=== PATIENT | male | born 1960 | race Caucasian/White ===

== ENCOUNTER 2016-05-10 21:24 | Inpatient (IN) | payer MEDICARE ==
[~2016-05-10] VITALS: Ht 177.8 cm; Wt 77.2 kg
[~2016-05-10 21:24] MED LIST: ASPI325T32 PO; CARV3.122 PO; CLIN-78 PO
[2016-05-10 23:39] VITALS: BP 180/128; PULSE 98; RESP 22; O2SAT 98
[2016-05-11] VITALS (11 sets, daily range): BP systolic 125–157; BP diastolic 90–114; PULSE 64–98; RESP 16–24; O2SAT 87–99
[2016-05-11] MEDS ORDERED: Nitroglycerin 2% 1 Gm Ointment TOPICAL ONE (00:15)
[2016-05-11] MEDS ORDERED: Ondansetron 2 mg/mL 2 mL Inj IVPUSH PRN (00:20)
[2016-05-11] MEDS ORDERED: Alum-Mag Hydrox-Simeth 30 mL Suspension PO PRN (00:20)
[2016-05-11] MEDS ORDERED: Polyethylene Glycol (PEG) 17 Gm Powder PO PRN (00:20)
[2016-05-11] MEDS ORDERED: Senna-Docusate 8.6-50 mg Tablet PO PRN (00:20)
[2016-05-11] MEDS ORDERED: Heparin 5,000 Unit/mL Inj SUBQ SCH (00:30)
[2016-05-11] MEDS: Sodium Chloride LOK Flush 10 mL Syringe IVFLUSH SCH ×4 (00:37→20:03)
--- NOTE | 2016-05-11 00:47 | PCM.HPMED ---
Subjective Date of Service May 11, 2016 Primary Provider: Admitting Physician: Alexis Alvarez MD Primary Care Physician: Nabil Mills MD Attending Physician: Alexis Alvarez MD Admit Status: Direct Admit, [facility] Telemetry Chief Complaint: SOB and increased leg swelling History of Present Illness: Mr. Frank Fraser is a 55 yo male with history of mental illness, polysubstance abuse, hepatic encephalopathy, hepatitis C, CHF of unknown type, HTN, and chronic renal insufficiency who was admitted directly from [facility] ED for increasing SOB. Patient reports worsening SOB, productive cough , and leg swelling 3 days ago. He reports brown sputum occasionally. He complains about mouth and gum pain and cannot talk clearly. However, he denies any CP, nausea, vomiting, headache, or abdominal pain currently. He states to be hungry and thirsty, requesting to eat. History is extremely limited due to his somnolent state and incoherent speech. According to the ED note from the transfer hospital, patient presented to the ED with complaint of worsening dyspnea with walking and exertion. Sitting upright seems to help. In the ED at [place], patient was found to be hypertensive 176/143. Temp 97.7. HR 100, RR 20, and O2 97% at [facility]. Labs significant for positive Amphetamine/ Methamphetamin on the UDS, INR 1.5, DDimer > 20, BUN 77, Cr 2.9, Na 134, K 5.6, AST 612, ALT 953, Alk Phos 529. Trop 0.41, CK-MB 56.9, CPK 924. BNP >5000. UA negative. CXR showed CHF and pulmonary edema with no infiltrate. EKG revealed normal sinus rhythm at rate of 99. It was thought the patient would get higher level of care, possible cardiology and nephrology, and he was transferred to [facility]. Of note, patient was admitted to the hospital for similar symptoms in 02/29/2016. Review of Systems: Due to the patient's incoherent speech and altered mental status, unable to perform complete review of systems. See HPI for pertinent positives and negatives. Allergies Coded Allergies: Sulfa (Sulfonamide Antibiotics) (Unverified Allergy, Severe, 02/28/15) As per RN-RN Report (Tristian Novoa RN) [facility] Home Medications Patient reports to take Lasix and BP medications. Unknown medication list. PMH CHF Renal Insufficiency Polysubstance abuse Abnormal live function test Hepatic encephalopathy Hepatitis C Gout PE FL HTN Psychotic disorder Mental Illness Adjustment disorder Surgical History Hernia repair Family History Unknown Social History Hx Substance Use: Yes (Meth) Smoking Status: Unknown if Ever Smoker Additional Information Limited social history due to patient's mental status. He denies drug or alcohol use. Per record, he is a current every day heavy tobacco smoker and methamphetamines. Unknown alcohol use. Patient states he lives with "izabella baker. " Likely to be homeless. Exam Vital Signs Vital Sign - Last Date Time Temp Pulse Resp B/P Pulse Ox O2 Delivery O2 Flow Rate FiO2 05/11/16 00:05 91 05/10/16 23:39 36.5 22 180/128 98 Room Air Exam General: Thin, sloven, disheveled, poor hygiene, appears somnolent but easily arousable with verbal. Incoherent speech. No acute distress, well-developed, well-nourished, appropriately interactive HEENT: Normocephalic, atraumatic. External ears without defect. Pupils equal, round, and sluggish reaction to light and accommodation. Slight scleral icterus , moist conjunctivae, and no lid lag. Rhinophyma. Very poor dentition with several tooth decay and missing teeth. No oral thrush visualize. Dry mucosa. Neck: Supple with full range of motion. Marked jugular venous distension. No lymphadenopathy or thyromegaly. Cardiovascular: Regular rate and rhythm with no murmurs, rubs, or gallops appreciated Pulmonary: Scattered rales, worse at bilateral bases. No wheezes or rhonchi. Normal respiratory effort with no use of accessory muscles. Abdomen: Bowel tones present. Soft, nontender, nondistended. No hepatosplenomegaly or masses appreciated. Extremities: Moderate pitting edema from below the knees down to the feet. No clubbing or cyanosis noted. Skin: Slight jaundice. Mild erythematous papular rash on bilateral legs. Dirty feet and nails. Neurological: Unable to assess due to patient's mental status. Not follow commands. Sensory function within normal limits. Psychiatric: Normal mood and affect. Somnolent and only oriented self and year. Lab and Diagnostics X-Rays, CTs and MRIs CXR at [facility] showed CHF, pulmonary edema, vascular gongestion, cardiomegaly. No infiltrate. 12-lead ECG EKG at the [facility] showed normal sinus rhythm at rate of 99. No ST changes. QTc 464. Unchanged compared to previous EKG on 03/16/16. Assessment & Plan 55 yo male with history of mental illness, polysubstance abuse, hepatic encephalopathy, hepatitis C, CHF of unknown type, HTN, and chronic renal insufficiency who was admitted directly from [facility] ED for increasing SOB. 1. Acute on chronic CHF exacerbation, present on admission, active. - Unknown if systolic or diastolic dysfunction. No prior Echo. - Patient presents with increasing dyspnea, fatigue, cough, and edema. Exam reveals warm and wet. - Markedly elevated Pro-BNP >5000 and cardiomegaly with pulmonary edema on CXR. - Multiple precipitants: medical noncompliance, renal failure, hypertensive crisis, and drugs use (Meth). - He was given a dose of Lasix 40mg in the ED at [place]. Will continue with Lasix 40mg IV BID. - Monitor I/O closely as well as daily weight. - Check Echo in the morning. - O2 supplement as needed. Keep O2>90%. - Will start Metoprolol tartrate 50mg BID in the morning. Will hold off on starting ACEi/ARBs given renal damage. 2. Elevated D-dimer with high suspicion for PE, present on admission, active. - D-Dimer >20 at [facility]. Patient had h/o PE in the past. - CT angio chest ordered, but due to his elevated Cr, it was cancelled. Consider ordering a V/Q scan this morning. - Will start Heparin bolus and drip. - Monitor PTT 3. Possible acute encephalopathy, present on admission, active. - Unknown baseline mental status, but is concerned for hepatic encephalopathy. - Check Ammonia and will start Lactulose if elevated. - Other possible etiologies include Meth use, chronic hypertension, B12/folate deficiency, or Wernicke. - Will start thiamine and multivitamins. - Check B12 and folate. - No signs of infection: afebrile, normal WBC, normal UA, normal CXR. However possible source of infection could be odontogenic infection given poor dentition. - Check Procalcitonin and Lactic acid. - Continue to monitor signs and symptoms. Consider ordering blood culture and start antibiotics if clinically indicated. - Swallow screen by nursing. If pass, will start with pureed diet. NPO if fails until clear by speech. 4. Acute on chronic kidney disease, present on admission, active. - BUN 77 and Cr 2.9 on admission (baseline Cr 1.96). - Avoid nephrotoxic drugs. Hold off on Lisinopril for now. - Will continue to monitor renal function. 5. Hypertensive emergency, present on admission, active. - BP 180/128 on admission with possible acute encephalopathy and kidney injury. - Likely due to medical noncompliance. - Patient received Nitro paste and Metoprolol IV push in the ED. Another Nitro paste here. - BP improved on the Nitro paste. Goal MAP is around 108. - Will start Metoprolol PO in the morning. Consider adding Lisinopril if renal function improves. 6. Elevated Troponin and CK-MB, present on admission, active. - In the setting of DEVANTE. However, Trop is elevated compared to baseline (0.41 today,was 0.018 two months ago) - EKG on admission was negative for acute changes. - Patient is otherwise asymptomatic. - Trend Trop and monitor Telemetry. 7. Electrolyte abnormalities, present on admission, acute. - Hypervolemic hyponatremia: in the setting of CHF exacerbation, will not give IVF and continue to monitor. - Hyperkalemia: no EKG changes. Continue to monitor 8. Elevated liver enzymes, acute on chronic, present on admission, active. - LFTs all elevated compared to 2 months ago. Suspect liver cirrhosis. - Will check acute hepatitis panel given history of hepatitis C. - Check abdominal U/S to look for cirrhosis. - INR elevated at 1.5. Will monitor INR and consider adding Vitamin K. 9. Dental/mouth pain, chronic, active. - Likely due to odontogenic infection. - Consider starting antibiotics and follow up with dentist as out patient. - Magic mouth wash PRN. 10. Methamphetamine abuse, chronic, active. - patient advised to quit. 11. Social issues including homelessness - consult social work faculty member in the morning. Code status: FULL per the patient. Patient is admitted under inpatient status with expected length of stay greater than 2 midnights due to severity of presenting symptoms, risk of adverse event, and complexity of treatment plan. Pain Evaluation: Adequate Pain Control GI Prophylaxis: H2 sushil VTE Prophylaxis: Other (Heparin ggt) Resuscitation Status: CPR: Attempt Resuscitation Attending Statement The patient was seen and examined together with Dr. Wilkinson on 05/10 and I agree with the history, exam and plan as outlined in the note above. Sury Wilkinson DO May 11, 2016 00:47 Alexis Alvarez MD May 11, 2016 02:19
--- NOTE | 2016-05-11 00:48 | NUR ---
Admission Pt brought by EMT from [facility] via stretcher. Pt alert and orientated. Mumbled, slurred speech at time makes understanding difficult. Pt able to transfer self from stretcher to bed. Admission completed to best ability as pt is drowsy and must be woken every few minutes to ask questions. Pt given ice chips and will have nurse swallow evaluation.
[2016-05-11] MEDS ORDERED: Heparin 5,000 Unit/mL Inj IVPUSH PRN (00:55)
[2016-05-11] MEDS: Heparin 25K Unit/500mL 0.45 NS 25,000 UNIT in IV Premix 1 EACH IV SCH ×2 (02:16→21:35)
[2016-05-11] MEDS ORDERED: Labetalol 5 mg/mL 4 mL Inj IVPUSH ONE (05:25)
[2016-05-11] MEDS: Diphen-Lido-Mylanta 1:1:1 Susp 15 mL Syringe PO PRN (05:31)
[2016-05-11] MEDS ORDERED: MeTOProlol 1 mg/mL 5 mL Inj IV ONE (05:35)
--- NOTE | 2016-05-11 06:15 | ABG ---
DateTimeAnalyzed 06:12:00 -_ pH ____7.384 - 7.350 7.450 pCO2 ___33.5__ -mmHg 35.0 45.0 pO2 ___94.0__ -mmHg 69.0 116 HCO3- ___19.6__ -mmol/L 22.0 26.0 ABE ___-4.3__ -mmol/L -2.0 2.0 tHb ___10.8__ -g/dL O2Hb ___94.4__ -% COHb ____1.4__ -% MetHb ____0.9__ -% sO2 ___96.6__ -% 25.0 FIO2 ___21.0__ -% Drawn By MM - Date/Time Notified____ 06:15:00 -_ Liter_Flow ____2.0__ -L/min Oxygen Device 1 __CANNULA - Notified Whom DR GONZALEZ - B 754 -mmHg tO2 ___14.4__ -Vol% Aaron test _Positive -
[2016-05-11 08:28] LABS: BASOPHILS % (AUTO) 0.1 % (0-3); EOSINOPHILS % (AUTO) 0.1 % (0-5); MONOCYTES % (AUTO) 10.1 % (4-12); Mean Corpuscular Hemoglobin 24.8 pg (27.0-35.0); Mean Corpuscular Volume 76.5 fL (81-100); NEUTROPHILS % (AUTO) 80.7 % (40-74); Platelet Count 353 bil/L (150-400)
[2016-05-11] MEDS: Multivit-Miner-Folic Acid-Iron Tablet PO SCH (08:34)
[2016-05-11 09:18] LABS: TROPONIN T 0.114 ug/L (0.0-0.011)
[2016-05-11 09:30] LABS: INR 1.5 ratio
--- NOTE | 2016-05-11 11:12 | NUR ---
Limited valuation was completed. Please go to "Notes" then click on "Assessments and Notes" (bottom left corner of screen). Then select appropriate discipline tab on top of screen.
--- NOTE | 2016-05-11 12:06 | DRSVH ---
[facility] [address] [place] [place] [address] Echocardiogram Report Name: DAVID ORDONEZ RStudy Date : 05/11/2016 Height: 70 in Hospital Exam Location: [facility] Weight: 173 lb Gender: Male BSA: 2.0 m2 : 1960 Age: 55 yrs BP: 152/106 mm Hg Reason For Study: Congestive Heart Failure Ordering Physician: [facility] Performed By: [place] Referring Physician: ROSE MARIE GONZALEZ Interpretation Summary 1. Mildly dilated left ventricle with mild to moderately increased wall thickness and globally reduced systolic function with an estimated EF of 20% 2. At least moderately dilated right ventricle with moderately decreased systolic function. 3. Severe tricuspid regurgitation into a dilated right atrium. The estimated right atrial pressure is elevated. The estimated RVSP is 52 mm Hg 4. Moderate mitral regurgitation into a dilated left atrium There is no old study for comparison Procedure: A two-dimensional transthoracic echocardiogram with color flow and Doppler was performed. The study quality was technically good. There is no prior echocardiogram noted for this patient. The patient was in normal sinus rhythm during the exam. Left Ventricle: The left ventricle is mildly dilated. There is mild- moderate concentric left ventricular hypertrophy. Left ventricular ejection fraction is estimated to be 20%. There is severe global hypokinesis of the left ventricle. Flattened septum is consistent with RV pressure/volume overload. Paradoxical septal motion is consistent with right ventricular volume overload. Right Ventricle: The right ventricle is moderately dilated. Right ventricular systolic function is moderately reduced. Atria: The left atrium is severely dilated. The right atrium is severely dilated. No color doppler evidence for an ASD. Mitral Valve: The mitral valve leaflets appear mildly thickened, but open well. There is moderate mitral regurgitation. Aortic Valve: The aortic valve is trileaflet. The aortic valve opens well. No aortic regurgitation is present. Tricuspid Valve: The tricuspid valve leaflets are thickened and/or calcified, but open well. There is severe tricuspid regurgitation. The right ventricular systolic pressure is estimated at 52 mmHg assuming a right atrial pressure of 15 mm Hg. Pulmonic Valve: The pulmonic valve is not well seen, but is grossly normal. There is moderate to severe pulmonic regurgitation. Great Vessels: The aortic root is normal size. The aortic arch is mildly enlarged. The ascending aorta is dilated at 3.9 cm. The pulmonary artery is normal size. The IVC is dilated (diameter is greater than 2.1 cm) and it collapses less than 50% with a sniff. This suggests a high right atrial pressure of 15 mm Hg. Pericardium/ Pleura There is no pericardial effusion. There is no pleural effusion. MMode/2D Measurements & Calculations LVIDd: 6.1 cm RA long axis LVOT diam: 2.5 cm LVIDs: 5.5 cm LA A2 area: 26.6 cm AoV Opening FS: 10.4 % LA A4 area: 23.9 cm RA area EPSS: 1.9 cm LA length (vol) Ao root diam IVSd: 1.4 cm : 33.5 cm LVPWd: 1.3 cm LA vol: 99.9 ml RA vol asc Aorta Diam LA vol index : 146.ml RA Ao Arch Diam (Prox : 74.8 mm2 Trans): 3.5 cm IVC diam: 2.3 cm LV gabriel. diameter/BSA LV sys. diameter/BSA RVD1 (basal) RVD2 (mid): 3.4 cm (cm/m^2): 3.1 (cm/m^2): 2.8 TAPSE: 1.2 cm Doppler Measurements & Calculations Ao V2 max: 74.0 cm/sec MV E max mayco MV E/A: 0.83 TR max mayco Ao max P.2 mmHg : 47.1 cm/sec Med Peak E' Mayco : 307.0 cm/sec Ao mean P.4 mmHg MV A max mayco TR max PG LVOT Max Mayco : 56.8 cm/sec E/E' med: 14.9 : 37.7 mmHg : 54.8 cm/sec Lat Peak E' Mayco PA V2 max : 57.1 cm/sec PLACIDO(I,D): 3.7 cm E/E' lat: 9.1 PA mean PG sev ratio: 0.76 E/e' average : 0.71 mmHg MV dec time: 0.15 sec Ao V2 mean LV V1 max PG PA V2 mean : 57.7 cm/sec : 40.3 cm/sec Ao V2 VTI: 9.1 cm LV V1 VTI: 7.0 cm PA pr(Accel) : 41.6 mmHg PLACIDO(V,D): 3.6 cm2 PLACIDO indexed to BSA (cm^2/m^2): 1.9 Reading Physician:12:05 PM
--- NOTE | 2016-05-11 12:45 | DRSVH ---
PROCEDURE: US ABDOMEN ([id number]) INDICATIONS: Elevated LFTs TECHNIQUE: Real-time scanning was performed of the abdominal and retroperitoneal organs, with image documentatio n. COMPARISON: None. FINDINGS: Liver: The liver is mildly enlarged and measures up to 18.7 cm in length. Diffuse increased echogeni city of the liver is noted when compared to the right kidney, which may partially obscure a subtle de ep or hepatic lesion. No large liver lesion is evident. Gallbladder: The gallbladder is decompressed and subsequently not well evaluated. The patient was no t n.p.o. at the time of this examination. The wall of the gallbladder appears to be thickened and me asures up to 6-7 mm in maximal thickness with a small amount of pericholecystic fluid present. No ob vious cholelithiasis is appreciated. Biliary ducts: The biliary ducts were not definitely seen. Pancreas: Visualized portions of the pancreas are sonographically normal. Spleen: Spleen is mildly enlarged and measures up to 13.4 cm in length. Kidneys: Right kidney is enlarged and measures 16.6 cm in length, related to severe hydronephrosis. Slight increased echogenicity of the renal parenchyma is noted. The left kidney is normal in size an d measures 12.2 cm in length. No significant left-sided hydronephrosis is present. There is slight increased echogenicity of the left renal parenchyma. Aorta: Visualized aorta is normal in caliber at less than 3 cm. Iliacs: Proximal common iliac arteries are normal in caliber at less than 2.5 cm. IVC: Intrahepatic inferior vena cava is patent. Miscellaneous: A small amount of free fluid is seen within the upper abdomen, best appreciated within the right upper quadrant. IMPRESSION: 1. Severe right-sided hydronephrosis is uncertain etiology. CT would be helpful of the abdomen and pelvis to exclude obstructive uropathy. 2. Mild hepatosplenomegaly. Increased echogenicity of the liver may be related to hepatic steatosis . Other chronic liver disease as, such as hepatic cirrhosis cannot be excluded. Please correlate cl inically. 3. Thickened enlarged gallbladder wall may be exaggerated by incomplete distention. However, right heart failure, chronic liver disease, or acute inflammation cannot be excluded. Clinical correlation is recommended. 4. Increased echogenicity of the kidneys suggestive of medical renal disease. 5. Mild ascites. Dictated by: Mookie Garcia M.D. on 05/11/2016 at 11:39 Approved by: Mookie Garcia M.D. on 05/11/2016 at 11:44
[2016-05-11] MEDS: Labetalol 5 mg/mL 4 mL Inj IVPUSH PRN (14:48)
--- NOTE | 2016-05-11 16:03 | DRSVH ---
PROCEDURE: NM VQ PULMONARY VENTILATION IMAGING INDICATIONS: ABNORMAL D-DIMER, SHORTNESS OF BREATH, CHRONIC KIDNEY DISEASE. COMPARISON: None. Radiopharmaceutical: 21.7 mCi DTPA FINDINGS: There is no comparison chest radiograph. Anterior and posterior views of the lung demonstr ate relatively normal ventilation images. The patient refused additional oblique and lateral views. T he patient also refused perfusion scan. IMPRESSION: Nondiagnostic examination. Dictated by: Dustin Mead M.D. on 05/11/2016 at 15:58 Approved by: Dustin Mead M.D. on 05/11/2016 at 16:02
--- NOTE | 2016-05-11 18:03 | PCM.PNMED ---
Subjective Date of Service May 11, 2016 Subjective 55 yo male with history of mental illness, polysubstance abuse, hepatic encephalopathy, hepatitis C, CHF of unknown type, HTN, and chronic renal insufficiency who was admitted directly from [facility] ED for increasing SOB. Patient reports worsening SOB, productive cough, and leg swelling 3 days ago. He remains encephalopathic and somewhat dysarthric so it is difficult to understand his complaints. Does not seem oriented. Exam Vital Signs Vital Sign - Last Date Time Temp Pulse Resp B/P Pulse Ox O2 Delivery O2 Flow Rate FiO2 05/11/16 16:07 35.6 72 22 132/92 99 Room Air 05/11/16 15:01 2.00 Intake and Output 05/10/16 05/10/16 05/11/16 Cumulative From/Thru 15:00 23:00 07:00 05/11/16 00:56 - 05/11/16 06:30 Output Total 200 ml 200 ml Balance -200 ml -200 ml Output Urine Total 200 ml 200 ml Exam General: Disheveled appearing, talkative but nonsensical, no acute distress HEENT: sclerae anicteric, oral mucosa moist, no severe gingival inflammation Neck: Supple no adenopathy Chest: Bibasilar crackles, no dullness Cardiac: S1S2, no murmur Abdomen: BS normal, non-tender Extremities: 2+ edema bilaterally in legs Neuro: A&O, cranial nerves symmetric, motor strength 5/5, no tremor or asterixis IVs and Medications Medications Reviewed: Medications were reviewed in detail Lab and Diagnostics Result Diagram: 05/11/16 0802 05/11/16 0802 X-Rays, CTs and MRIs CXR at [facility] showed CHF, pulmonary edema, vascular gongestion, cardiomegaly. No infiltrate. PROCEDURE: US ABDOMEN ([id number]) IMPRESSION: 1. Severe right-sided hydronephrosis is uncertain etiology. CT would be helpful of the abdomen and pelvis to exclude obstructive uropathy. 2. Mild hepatosplenomegaly. Increased echogenicity of the liver may be related to hepatic steatosis. Other chronic liver disease as, such as hepatic cirrhosis cannot be excluded. Please correlate clinically. 3. Thickened enlarged gallbladder wall may be exaggerated by incomplete distention. However, right heart failure, chronic liver disease, or acute inflammation cannot be excluded. Clinical correlation is recommended. 4. Increased echogenicity of the kidneys suggestive of medical renal disease. 5. Mild ascites. Dictated by: Mookie Garcia M.D. on 05/11/2016 at 11:39 . 12-lead ECG EKG at the [facility] showed normal sinus rhythm at rate of 99. No ST changes. QTc 464. Unchanged compared to previous EKG on 03/16/16. Cardiac Echo Impressions Echocardiogram Report Name: DAVID ORDONEZ Study Date : 05/11/2016 Interpretation Summary 1. Mildly dilated left ventricle with mild to moderately increased wall thickness and globally reduced systolic function with an estimated EF of 20% 2. At least moderately dilated right ventricle with moderately decreased systolic function. 3. Severe tricuspid regurgitation into a dilated right atrium. The estimated right atrial pressure is elevated. The estimated RVSP is 52 mm Hg 4. Moderate mitral regurgitation into a dilated left atrium Assessment & Plan 55 yo male with history of mental illness, polysubstance abuse, hepatic encephalopathy, hepatitis C, CHF of unknown type, HTN, and chronic renal insufficiency who was admitted directly from [facility] ED for increasing SOB. #. Acute on chronic CHF exacerbation, present on admission, active. Acute systolic congestive heart failure. Likely sympathomimetic abuse, alcohol or possibly ischemic disease. - continue with Lasix 40mg IV BID. - Monitor I/O closely as well as daily weight. - O2 supplement as needed. Keep O2>90%. - Will start Metoprolol tartrate 25mg BID in the morning. - hold off on starting ACEi/ARBs given renal damage. - Cardiology consult #. Elevated D-dimer with high suspicion for PE, present on admission, active. D -Dimer >20 at [facility]. Patient had h/o PE in the past. Nuclear medicine study ordered but patient was unable to comply. - Will start Heparin bolus and drip. - Check lower extremity Doppler #. Acute encephalopathy, present on admission, active. Likely toxic encephalopathy related to substance use. - Will start thiamine and multivitamins. - Check B12 and folate. - Follow clinically at present #. Acute on chronic kidney disease, present on admission, active. Unilateral hydronephrosis. Likely obstructive uropathy with superimposed medical renal disease. - BUN 77 and Cr 2.9 on admission (baseline Cr 1.96). - Abdominal CT scan - Appropriate management of hydronephrosis. #. Hypertensive emergency, present on admission, active. - BP 180/128 on admission with possible acute encephalopathy and kidney injury. - Labetalol when necessary. - Continue with scheduled metoprolol #. Elevated Troponin and CK-MB, present on admission, active. - In the setting of DEVANTE. However, Trop is elevated compared to baseline (0.41 today,was 0.018 two months ago) likely related to renal failure - EKG on admission was negative for acute changes. -Follow clinically #. Electrolyte abnormalities, present on admission, acute. - Hypervolemic hyponatremia: in the setting of CHF exacerbation, will not give IVF and continue to monitor. - Hyperkalemia: no EKG changes. Continue to monitor #. Elevated liver enzymes, acute on chronic, present on admission, active. Likely fatty liver, simply alcoholic versus infectious hepatitis. No evidence cirrhosis - LFTs all elevated compared to 2 months ago. Suspect liver cirrhosis. - Will check acute hepatitis panel given history of hepatitis C. - Repeat CMP #. Dental/mouth pain, chronic, active. - Magic mouth wash PRN. #. Methamphetamine abuse, chronic, active. patient advised to quit. #. Social issues including homelessness - consult social contact worker in the morning. Code status: FULL per the patient. Patient is admitted under inpatient status with expected length of stay greater than 2 midnights due to severity of presenting symptoms, risk of adverse event, and complexity of treatment plan. GI Prophylaxis: H2 sushil VTE Prophylaxis: Other (Heparin ggt) VTE Mechanical Devices: Intermittant Pneumatic CD Resuscitation Status: CPR: Attempt Resuscitation Time spent 40 minutes Caleb Lopez MD May 11, 2016 16:48
--- NOTE | 2016-05-11 19:10 | NUR ---
HTN/SPO2//somnolent/refusing care Cardiac: Pt denies CP. Tele sinus. Pt is hypertensive with DBP that is frequently over 100. PO meds decreased BP somewhat by noon, labetelol ordered PRN and given for DBP of 108, DBP down to 90 after one dose, and remained in 90s for the rest of the shift. Resp: Pt has mild SOB. SP02 at 98% on 2L NC. Pt can be RA, but seems to desat down to upper 80s when asleep at times. Pt reports it hurts to breath deeply, Pt reports that it feels the same as two years ago when he had "pox pneumonia". GI/: Pt denies N/V/D. Neuro: A&Ox2, LAI, pt is very difficult to understand, when pt falls asleep he is often very difficult to arouse. Pt can become agitated at times. Pt refuses care and tests as well. Pt refused to complete speech eval, did not tolerate laying down for the VQ scan and refused to be transported this evening to CT, repeatedly insisting "do it tomorrow".
[2016-05-11] MEDS: Furosemide 10 mg/mL 4 mL Inj IVPUSH SCH (20:03)
[2016-05-11] MEDS: Ascorbic Acid 500 mg Tablet PO SCH (21:24)
[2016-05-12] VITALS (12 sets, daily range): BP systolic 129–159; BP diastolic 79–115; PULSE 70–82; RESP 16–22; O2SAT 93–99
[2016-05-12 02:28] LABS: BASOPHILS % (AUTO) 0.1 % (0-3); EOSINOPHILS % (AUTO) 1.2 % (0-5); MONOCYTES % (AUTO) 9.8 % (4-12); Mean Corpuscular Hemoglobin 24.7 pg (27.0-35.0); Mean Corpuscular Volume 75.5 fL (81-100); NEUTROPHILS % (AUTO) 77.7 % (40-74); Platelet Count 318 bil/L (150-400)
[2016-05-12 03:09] LABS: Hepatitis A Antibody IgM Negative (Negative); Hepatitis B Core Antibody IgM Negative (Negative)
[2016-05-12] MEDS: Labetalol 5 mg/mL 4 mL Inj IVPUSH PRN ×2 (04:24→05:38)
--- NOTE | 2016-05-12 06:36 | NUR ---
Pain/Mentation/BP pt reports severe mouth pain and has what appears to be blisters on his tongue, magic mouth wash offered which pt refuses, he wants "Ativan and Viocodin instead". paged with request but no new orders received, Tylenol given x2.. Pt is sometimes difficult to understand but is A&O x3. Pt has numerous requests about his care and barks orders at staff constantly. Pt BP elevated intermittently, especially when pt gets agitated, Labetalol given x2 with good results. Pt reports that hge has black stools but pt did not have a BM all night.
[2016-05-12 07:15] LABS: Vitamin B12 >1999 pg/mL (211-946)
[2016-05-12] MEDS: Sodium Chloride LOK Flush 10 mL Syringe IVFLUSH SCH ×2 (08:30→16:32)
[2016-05-12] MEDS: Multivit-Miner-Folic Acid-Iron Tablet PO SCH (09:06)
[2016-05-12] MEDS: Furosemide 10 mg/mL 4 mL Inj IVPUSH SCH ×2 (09:07→15:41)
[2016-05-12] MEDS: Ascorbic Acid 500 mg Tablet PO SCH (09:07)
--- NOTE | 2016-05-12 11:28 | DRSVH ---
PROCEDURE: US VENOUS LEG DUPLEX BILATERAL INDICATIONS: r/o dvt TECHNIQUE: Real-time imaging, as well as color and pulse Doppler interrogation, were performed of the deep veins of both legs from the inguinal ligament to the popliteal fossa. COMPARISON: None. FINDINGS: The deep veins are normally compressible, and free of intraluminal thrombus. Color and pu lse Doppler demonstrate normal phasic intravascular flow. There is normal augmentation response to d istal compression maneuver. IMPRESSION: No deep venous thrombosis identified within either the left or right lower extremities. Dictated by: Tristian NGUYEN Interpreted: Chata Denise MD on 05/12/2016 at 11:28 Transcribed by: REX on 05/12/2016 at 11:28 Approved by: Chata Denise M.D. on 05/12/2016 at 16:40
--- NOTE | 2016-05-12 13:57 | NUR ---
Social Work: Initial Assessment D: Per EMR review, pt is a 55 year old male admitted for CHF. Pt is Medicare with no suppplement or LTC or VA benefits. PCP is not listed- pt declined Residency Clinic Appointment. NOK not listed- pt declined to provide a contact. Advanced directives not completed- pt declined AD information. Readmit score is moderate, 5/8. RECEIVING TEAM MEMBER met with pt at bedside. Sw role explained and contact info provided. See initial assessment. Pt states he lives in a 2 story home in [place]. Pt denies that he is homeless, as referenced during AM rounds. Pt states he lives with roommates. Pt does not use any DME and does not drive. Pt states he walks or uses public transit. Pt has never had HH or skilled rehab. Pt has a history of polysubstance use however denies this during RECEIVING TEAM MEMBER assessment. Pt states he has never completed any treatment or counseling. Pt declined community resources from RECEIVING TEAM MEMBER. Pt states that at time of discharge he will take public transportation back home. RECEIVING TEAM MEMBER informed pt that [facility] does not have out of county bus tickets. Pt states he will pay privately for his bus pass home. Pt declined to speak with RECEIVING TEAM MEMBER about polysubstance abuse and requested RECEIVING TEAM MEMBER leave, multiple times throughout assessment. A: Pt who is I at baseline. P: Anticipate pt to discharge home via public transportation (pt to pay for bus ticket) when medically stable; RECEIVING TEAM MEMBER to continue to follow. ISHA Álvarez Addendum: 05/12/16 at 1403 by ANABEL REDMOND Amended: Links added.
--- NOTE | 2016-05-12 14:55 | DRSVH ---
PROCEDURE: CT KUB ([id number]) INDICATIONS: hydronephrosis TECHNIQUE: Noncontrast 5 mm thick sections acquired from the diaphragms to the symphysis. 5 mm thick coronal an d sagittal reformats were then performed. For radiation dose reduction, the following was used: aut omated exposure control, adjustment of mA and/or kV according to patient size. COMPARISON: None. FINDINGS: Image quality: Excellent. Lung bases: Patchy air space consolidation noted in the right lung base suspicious for pneumonia vers us aspiration. Probable atelectasis noted in the left lung base. There is a 0.9 cm in diameter nodule in the lateral periphery of the left lower lobe (series 5, image 10). Small right subpleural effusio n is noted. Heart is enlarged. Atherosclerotic ossifications in the visualized coronary vasculature. Urinary system: Severe right sided hydronephrosis is noted. There is marked right renal cortical thin doreen suggesting prostatic hydronephrosis is chronic. Hydronephrosis extends the level of the right ur eteropelvic junction. No definite stone identified. Right-sided hydronephrosis and reduced or obstruc ting mass or benign stricture at the level of the right UPJ. No left-sided hydronephrosis. 5.4 cm juan pablo meter soft tissue density mass projects off the inferior pole of the right kidney. No kidney stones. Both ureters appear non-dilated throughout their expected courses. Bladder wall thickness is normal ; no calcified bladder stones. Other solid organs: Liver is normal in size. Spleen liver and slightly nodular margins suggestive of hepatic cirrhosis; please correlate with clinical laboratory data. is mildly enlarged measuring 13.9 cm in longitudinal axis. Gallbladder is contracted. Pancreas is normal in contours. No adrenal nod ules. Peritoneum and bowel: Unenhanced bowel loops demonstrate normal wall thickness and caliber. Moderate fecal loading noted throughout the colon. Chrf-uc-ahhsapbs amount of ascites is scattered throughout the abdomen and pelvis. No free air. Appendix is normal. Nodes and vessels: No retroperitoneal or mesenteric adenopathy by size criteria. Aorta and inferior vena cava are normal in caliber. Scattered atherosclerotic calcifications are noted in the abdominal pelvic vasculature. Abdominal wall: No ventral hernias. Pelvis: No free pelvic fluid. No inguinal hernias or adenopathy. Bones: No suspicious bony lesions. No vertebral body compression fractures. IMPRESSION: 1. Severe right-sided hydronephrosis. Hydronephrosis extends the level of the right UPJ at the second vickey to obstructing neoplastic process or benign stricture. 2. 5.4 cm soft tissue density exophytic mass projecting off the inferior pole of the right kidney. Ma lignancy such as renal cell carcinoma cannot be excluded. 3. Slightly nodular hepatic margin suggestive of hepatic cirrhosis. Please correlate with clinical la boratory data. 4. Mild to moderate amount of ascites. 5. Moderate fecal loading throughout colon. Please correlate with clinical data. 6. Cardiomegaly. 7. Atherosclerosis including the visualized coronary vasculature. 8. Patchy airspace opacities in the right lung base and small right sided pleural effusion suspicious for pneumonia. 9. 0.9 cm left lower lobe nodule. Recommend followup imaging based on criteria outlined below. Fleischner Society criteria for SOLID lung nodule followup. Nodule size (mm)Low-risk patientHigh-risk patient<6 (single or multiple)No routine followup.Optional CT at 12 months. 6-8 (single or multiple)CT at 6-12 months, then optional CT at 18-24 mo.CT at 6-12 m onths, then CT at 18-24 months. >8 (single)CT, PET-CT, or biopsy at 3 months. Same as for low-risk p ts. >8 (multiple)CT at 3-6 months, then optional CT at 18-24 mo.CT at 3-6 months, then CT at 18-24 m onths. Dictated by: Anai Adair MD, PhD on 05/12/2016 at 14:45 Approved by: Anai Adair MD, PhD on 05/12/2016 at 14:54
[2016-05-12] MEDS: Diphen-Lido-Mylanta 1:1:1 Susp 15 mL Syringe PO PRN (15:33)
--- NOTE | 2016-05-12 17:14 | PCM.PNMED ---
Subjective Date of Service May 12, 2016 Subjective 55 yo male with history of mental illness, polysubstance abuse, hepatic encephalopathy, hepatitis C, CHF of unknown type, HTN, and chronic renal insufficiency who was admitted directly from [facility] ED for increasing SOB. Patient reports worsening SOB, productive cough, and leg swelling 3 days ago. He is alert but does not communicate extensively. Thought disorder is present. He endorses dyspnea but seems to be lying comfortably in bed. No acute pain. Exam Vital Signs Vital Sign - Last Date Time Temp Pulse Resp B/P Pulse Ox O2 Delivery O2 Flow Rate FiO2 05/12/16 16:26 36.5 79 16 134/86 95 Room Air 05/12/16 13:16 0.50 Intake and Output 05/11/16 05/11/16 05/12/16 Cumulative From/Thru 14:59 22:59 06:59 05/11/16 00:56 - 05/12/16 06:47 Intake Total 423 ml 1076 ml 1499 ml Output Total 1700 ml 1900 ml Balance 423 ml -624 ml -401 ml Intake Oral 300 ml 1076 ml 1376 ml IV Total 123 ml 123 ml Output Urine Total 1700 ml 1900 ml Exam General: Disheveled appearing, slightly dysphoric, no acute distress HEENT: sclerae anicteric, Neck: Supple no adenopathy Chest: Bibasilar crackles, no dullness Cardiac: S1S2, no murmur Abdomen: BS normal, non-tender Extremities: 2+ edema bilaterally in legs, symmetric Neuro: A&O, cranial nerves symmetric, motor strength 5/5, no tremor or asterixis IVs and Medications Medications Reviewed: Medications were reviewed in detail Lab and Diagnostics Result Diagram: 05/12/1621405/12/16214 X-Rays, CTs and MRIs CXR at [facility] showed CHF, pulmonary edema, vascular congestion, cardiomegaly. No infiltrate. PROCEDURE: US ABDOMEN ([id number]) IMPRESSION: 1. Severe right-sided hydronephrosis is uncertain etiology. CT would be helpful of the abdomen and pelvis to exclude obstructive uropathy. 2. Mild hepatosplenomegaly. Increased echogenicity of the liver may be related to hepatic steatosis. Other chronic liver disease as, such as hepatic cirrhosis cannot be excluded. Please correlate clinically. 3. Thickened enlarged gallbladder wall may be exaggerated by incomplete distention. However, right heart failure, chronic liver disease, or acute inflammation cannot be excluded. Clinical correlation is recommended. 4. Increased echogenicity of the kidneys suggestive of medical renal disease. 5. Mild ascites. Dictated by: Mookie Garcia M.D. on 05/11/2016 at 11:39 PROCEDURE: US VENOUS LEG DUPLEX BILATERAL IMPRESSION: No deep venous thrombosis identified within either the left or right lower extremities. Dictated by: Tristian Urban RRA Interpreted: Chata Denise MD on 05/12/2016 at 11: 28 PROCEDURE: CT KUB ([id number]) FINDINGS: Lung bases: Patchy air space consolidation noted in the right lung base suspicious for pneumonia versus aspiration. Probable atelectasis noted in the left lung base. There is a 0.9 cm in diameter nodule in the lateral periphery of the left lower lobe (series 5, image 10). Small right subpleural effusion is noted. Heart is enlarged. Atherosclerotic ossifications in the visualized coronary vasculature. Urinary system: Severe right sided hydronephrosis is noted. There is marked right renal cortical thinning suggesting prostatic hydronephrosis is chronic. Hydronephrosis extends the level of the right ureteropelvic junction. No definite stone identified. Right-sided hydronephrosis and reduced or obstructing mass or benign stricture at the level of the right UPJ. No left- sided hydronephrosis. 5.4 cm diameter soft tissue density mass projects off the inferior pole of the right kidney. No kidney stones. Both ureters appear non- dilated throughout their expected courses. Bladder wall thickness is normal; no calcified bladder stones. Other solid organs: Liver is normal in size. Spleen liver and slightly nodular margins suggestive of hepatic cirrhosis; please correlate with clinical laboratory data. is mildly enlarged measuring 13.9 cm in longitudinal axis. Gallbladder is contracted. Pancreas is normal in contours. No adrenal nodules. IMPRESSION 1. Severe right-sided hydronephrosis. Hydronephrosis extends the level of the right UPJ at the secondary to obstructing neoplastic process or benign stricture . 2. 5.4 cm soft tissue density exophytic mass projecting off the inferior pole of the right kidney. Malignancy such as renal cell carcinoma cannot be excluded. 3. Slightly nodular hepatic margin suggestive of hepatic cirrhosis. Please correlate with clinical laboratory data. 4. Mild to moderate amount of ascites. 5. Moderate fecal loading throughout colon. Please correlate with clinical data. 6. Cardiomegaly. 7. Atherosclerosis including the visualized coronary vasculature. 8. Patchy airspace opacities in the right lung base and small right sided pleural effusion suspicious for pneumonia. 9. 0.9 cm left lower lobe nodule. Recommend followup imaging based on criteria outlined below. Fleischner Society criteria for SOLID lung nodule followup. Nodule >8mm (single)CT, PET-CT, or biopsy at 3 months. Dictated by: Anai Adair MD, PhD on 05/12/2016 at 14:45 . 12-lead ECG EKG at the [facility] showed normal sinus rhythm at rate of 99. No ST changes. QTc 464. Unchanged compared to previous EKG on 03/16/16. Cardiac Echo Impressions Echocardiogram Report Name: DAVID ORDONEZ Study Date : 05/11/2016 Interpretation Summary 1. Mildly dilated left ventricle with mild to moderately increased wall thickness and globally reduced systolic function with an estimated EF of 20% 2. At least moderately dilated right ventricle with moderately decreased systolic function. 3. Severe tricuspid regurgitation into a dilated right atrium. The estimated right atrial pressure is elevated. The estimated RVSP is 52 mm Hg 4. Moderate mitral regurgitation into a dilated left atrium . Assessment & Plan 55 yo male with history of mental illness, polysubstance abuse, hepatic encephalopathy, hepatitis C, CHF of unknown type, HTN, and chronic renal insufficiency who was admitted directly from [facility] ED for increasing SOB. #. Acute on chronic CHF exacerbation, present on admission, active. Acute systolic congestive heart failure. Likely sympathomimetic abuse, alcohol or possibly ischemic disease. No significant diuresis of her first 24 hours of hospitalization. - Increase Lasix from 40mg to 80 mg IV BID. - Monitor I/O closely as well as daily weight. - O2 supplement as needed. Keep O2>90%. - Carvedilol. - hold off on starting ACEi/ARBs apparent acute kidney injury. - Cardiology consult #. Elevated D-dimer, present on admission, active. D-Dimer >[address] [facility]. Patient had h/o PE in the past. Nuclear medicine study ordered but patient was unable to comply. Lower extremity Doppler is negative. Patient has cirrhosis coagulopathy and possible neoplasm, extremity and false positive d-dimer. No strong evidence of DVT. - Discontinue heparin. #. Acute encephalopathy, present on admission, active. Likely toxic encephalopathy related to substance use. - Will start thiamine and multivitamins. - Check B12 and folate. - Follow clinically at present #. Acute on chronic kidney disease, present on admission, active. Unilateral hydronephrosis. Likely obstructive uropathy, possibly due to neoplasm, with superimposed medical renal disease. - BUN 77 and Cr 2.9 on admission (baseline Cr 1.96). - Urology consult #. Hypertensive emergency, present on admission, active. - BP 180/128 on admission with possible acute encephalopathy and kidney injury. - Increase carvedilol. #. Elevated Troponin and CK-MB, present on admission, active. - In the setting of DEVANTE. However, Trop is elevated compared to baseline (0.41 today,was 0.018 two months ago) likely related to renal failure - EKG on admission was negative for acute changes. - Follow clinically #. Electrolyte abnormalities, present on admission, acute. - Hypervolemic hyponatremia: in the setting of CHF exacerbation, will not give IVF and continue to monitor. - Hyperkalemia: no EKG changes. Continue to monitor #. Elevated liver enzymes, acute on chronic, present on admission, active. Likely fatty liver, simply alcoholic versus infectious hepatitis. Abdominal CT suggests cirrhosis. - Will check acute hepatitis panel given history of hepatitis C. - Repeat CMP #. Dental/mouth pain, chronic, active. No signs of severe gingivitis. - Magic mouth wash PRN. #. Methamphetamine abuse, chronic, active. patient advised to quit. #. Social issues including homelessness - consult renal social worker in the morning. Code status: FULL per the patient. Patient is admitted under inpatient status with expected length of stay greater than 2 midnights due to severity of presenting symptoms, risk of adverse event, and complexity of treatment plan. GI Prophylaxis: H2 sushil VTE Prophylaxis: Other (Heparin ggt) VTE Mechanical Devices: Intermittant Pneumatic CD Resuscitation Status: CPR: Attempt Resuscitation Time spent 40 minutes Caleb Lopez MD May 12, 2016 17:14
--- NOTE | 2016-05-12 18:02 | NUR ---
Hypertension/Heparin drip Pt. has been hypertensive throughout shift and was made aware. Pt. was also DC'D from heparin gtt and is now saline locked. Pt. appears to be more cooperative this afternoon than this morning and more calm. Pt. has orders to have tele off for showers and at this time is showering independently sitting on the shower bench.
[2016-05-13] MEDS: Sodium Chloride LOK Flush 10 mL Syringe IVFLUSH SCH ×2 (00:57→08:34)
[2016-05-13 03:52] VITALS: BP 141/90; PULSE 83; RESP 18; O2SAT 96
[2016-05-13 04:50] VITALS: PULSE 83
--- NOTE | 2016-05-13 07:24 | NUR ---
Impulsive/inappropriate behavior Pt does not use call light. Pt sits on bed and yells out "Nurse! Nurse!" "I need a sandwich!" Pt reoriented to call light multiple times throughout shift. Pt responds "OK" but again does not use call light. monitoring frequently for needs.
[2016-05-13] MEDS ORDERED: Isosorbide Mononitrate 30 mg ER24 Tablet PO SCH (07:30)
[2016-05-13 08:29] VITALS: BP 141/86; PULSE 85; RESP 20; O2SAT 96
[2016-05-13] MEDS: Multivit-Miner-Folic Acid-Iron Tablet PO SCH (08:34)
--- NOTE | 2016-05-13 11:10 | CONS ---
[address] [address] CONSULTATION REPORT PATIENT: DAVID ORDONEZ : 1960 MR#: [id number] ADMIT: 05/10/2016 JOB ID: [id number] DATE OF SERVICE: 05/13/2016 HISTORY: The patient is a 55-year-old white male who was admitted to [facility] for shortness of breath. He has developed an acute on chronic kidney injury, and renal consultation is being sought for further management of his chronic kidney disease. He has a longstanding history of polysubstance abuse, mental illness, hepatitis C, severe systolic congestive heart failure, and chronic kidney disease. There is also a history of intermittent hepatic encephalopathy. He initially was admitted to [facility] for shortness of breath and was subsequently transferred to [facility] for further evaluation. The patient is a quite difficult historian because he seems to be quite somnolent and also quite surly. Apparently, he has had some progressive dyspnea both at rest and on exertion along with bilateral lower extremity edema for the last three days prior to admission. He has also had a cough productive of mucopurulent sputum. He denies any chest pain, wheezing, orthopnea, nausea, vomiting, or abdominal pain. He denies a history of any prior renal problems. He denies any history of diabetes, hematuria, proteinuria, recurrent urinary tract infections, but does use amphetamines among other substances. He does have a history of hepatitis C which may be a component in his chronic kidney disease. In reviewing his old records, I see that his baseline creatinine is approximately 1.7 to 2. No urinalysis is available at time of my consultation. No blood cultures have been obtained, and I have reviewed his echocardiogram which shows significant systolic impairment with an estimated ejection fraction of approximately 20%. He also has concentric left ventricular hypertrophy and extremely elevated right-sided pressures. There is also thickening of the tricuspid valve but no evidence of any overt vegetations. PAST MEDICAL HISTORY: Significant for polysubstance abuse, mental illness, hepatitis C, hepatic encephalopathy, gout, pulmonary embolus, myocardial infarction, hypertension with hypertensive heart disease, and hypertensive nephrosclerosis. There is also a history of congestive heart failure. PAST SURGICAL HISTORY: Significant for hernia repair. ALLERGIES: He is allergic to SULFA antibiotics. MEDICATIONS: At time of admission, the patient was not on any prescribed medications. SOCIAL HISTORY: He has a history of ongoing cigarette use and polysubstance abuse, including methamphetamines. FAMILY HISTORY: Unobtainable. REVIEW OF SYSTEMS: As detailed above or unable to be obtained. MEDICATIONS: At time of my evaluation include: 1. Carvedilol. 2. Furosemide. 3. Metolazone. 4. Imdur. 5. Atorvastatin. 6. Hydralazine. 7. Aspirin. 8. Famotidine. 9. Thiamin. 10. Warfarin. PHYSICAL EXAMINATION: Revealed a disheveled somewhat somnolent 55-year-old white male who looked considerably older than his stated age. His vital signs at time of my evaluation showed a blood pressure 140/86 and a pulse of 85. HEENT examination is remarkable for pale sclerae. Neck is supple without adenopathy or thyromegaly. However, there was jugular venous distention at approximately 75 degrees. Lungs showed some bibasilar rales and scattered rhonchi. There were also diffuse end-expiratory wheezes noted. Heart was regular and rhythmical with a grade 2/6 systolic ejection murmur. However, no S3 or S4 was noted. Abdomen was soft with some mild distention. Bowel sounds were normal. There was no evidence of any free fluid wave, and there was some mild right upper quadrant tenderness to palpation without rebound. Decker sign was negative. There was also evidence of significant hepatosplenomegaly, pulsatile liver, and hepatojugular reflux was positive. His extremities showed moderate pitting edema confined to both distal lower extremities. There was no clubbing, cyanosis, or evidence of half and half nails. Skin turgor was good, and there was no evidence of any rashes. LABORATORY EXAMINATION: This morning, his white count is 9.0, hemoglobin 10.5, hematocrit 32.1. MCV is low at 75. There were 77% neutrophils. This morning, his sodium is 129, potassium 3.4, chloride of 88, bicarbonate is 26. BUN and creatinine were 75 and 2.83 with a glucose of 105. His liver function studies are significantly elevated: His total bili is 1.7. AST is 451. ALT is 769. Alkaline phosphatase is 476 and an albumin of 3.0. Abdominal ultrasound showed: 1. A significant right-sided hydronephrosis. 2. Mild hepatosplenomegaly most likely secondary to passive congestion. 3. Thickened gallbladder. In light of this tenderness, I would be suspicious of acute cholecystitis. It also had evidence of ascites and increased echogenicity of both kidneys. IMPRESSION: 1. Acute on chronic kidney injury secondary to decompensated heart failure with cardiorenal syndrome. 2. Baseline chronic kidney disease. Possibly secondary to hepatitis C versus endocarditis. 3. Hepatitis C by history. 4. Thickened gallbladder. 5. Hypertension with hypertensive heart disease and hypertensive nephrosclerosis with congestive heart failure. RECOMMENDATION: I would like to check two sets of blood cultures, rule out endocarditis. I would also like to get a sed rate, C3, C4. I would like to get a urinalysis along with an JERRI and anti-GBM. In addition, we need to obtain a cryoglobulin level in light of his history of hepatitis C. I would also strongly urge a HIDA scan with further evaluation of his gallbladder. Once again, I would like to thank you for allowing me to participate in the care of this rather unfortunate patient. I will be following him closely with you.
--- NOTE | 2016-05-13 12:46 | NUR ---
AMA Pt. left against medical advice at ~1240. Pt. was explained about the risks of leaving and Pt. stated "I dont care, I only have a staph. infection". Pt. was again approached calmly by me and I asked "If you are leaving and I cant say anything to change your mind can I have you sign an AMA form?". Pt. stated "I am not signing that, I dont care, I am not signing that". Pt. took out his own IV on his left forearm prior from me coming into the room and Pt. was not bleeding from IV site. Pt. refused for me to put a dry gauze over the IV site and I picked up the IV off the floor it was intact, Pts. forearm asymptomatic. MD was made aware and charge nurse was made aware as well. Charge nurse attempted to have Pt. sign AMA form one last time before leaving but he just walked out and ignored charge nurse. AMA from was signed by charge nurse and myself.
[2016-05-13] MEDS ORDERED: Furosemide 10 mg/mL 4 mL Inj IVPUSH SCH (16:00)
--- NOTE | 2016-05-13 16:38 | PCM.DC.MED ---
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 No infiltrate. PROCEDURE: US ABDOMEN ([id number]) IMPRESSION: 1. Severe right-sided hydronephrosis is uncertain etiology. CT would be helpful of the abdomen and pelvis to exclude obstructive uropathy. 2. Mild hepatosplenomegaly. Increased echogenicity of the liver may be related to hepatic steatosis. Other chronic liver disease as, such as hepatic cirrhosis cannot be excluded. Please correlate clinically. 3. Thickened enlarged gallbladder wall may be exaggerated by incomplete distention. However, right heart failure, chronic liver disease, or acute inflammation cannot be excluded. Clinical correlation is recommended. 4. Increased echogenicity of the kidneys suggestive of medical renal disease. 5. Mild ascites. Dictated by: Mookie Garcia M.D. on 05/11/2016 at 11:39 PROCEDURE: US VENOUS LEG DUPLEX BILATERAL IMPRESSION: No deep venous thrombosis identified within either the left or right lower extremities. Dictated by: Tristian Urban RRA Interpreted: Chata Denise MD on 05/12/2016 at 11: 28 PROCEDURE: CT KUB ([id number]) FINDINGS: Lung bases: Patchy air space consolidation noted in the right lung base suspicious for pneumonia versus aspiration. Probable atelectasis noted in the left lung base. There is a 0.9 cm in diameter nodule in the lateral periphery of the left lower lobe (series 5, image 10). Small right subpleural effusion is noted. Heart is enlarged. Atherosclerotic ossifications in the visualized coronary vasculature. Urinary system: Severe right sided hydronephrosis is noted. There is marked right renal cortical thinning suggesting prostatic hydronephrosis is chronic. Hydronephrosis extends the level of the right ureteropelvic junction. No definite stone identified. Right-sided hydronephrosis and reduced or obstructing mass or benign stricture at the level of the right UPJ. No left- sided hydronephrosis. 5.4 cm diameter soft tissue density mass projects off the inferior pole of the right kidney. No kidney stones. Both ureters appear non- dilated throughout their expected courses. Bladder wall thickness is normal; no calcified bladder stones. Other solid organs: Liver is normal in size. Spleen liver and slightly nodular margins suggestive of hepatic cirrhosis; please correlate with clinical laboratory data. is mildly enlarged measuring 13.9 cm in longitudinal axis. Gallbladder is contracted. Pancreas is normal in contours. No adrenal nodules. IMPRESSION 1. Severe right-sided hydronephrosis. Hydronephrosis extends the level of the right UPJ at the secondary to obstructing neoplastic process or benign stricture . 2. 5.4 cm soft tissue density exophytic mass projecting off the inferior pole of the right kidney. Malignancy such as renal cell carcinoma cannot be excluded. 3. Slightly nodular hepatic margin suggestive of hepatic cirrhosis. Please correlate with clinical laboratory data. 4. Mild to moderate amount of ascites. 5. Moderate fecal loading throughout colon. Please correlate with clinical data. 6. Cardiomegaly. 7. Atherosclerosis including the visualized coronary vasculature. 8. Patchy airspace opacities in the right lung base and small right sided pleural effusion suspicious for pneumonia. 9. 0.9 cm left lower lobe nodule. Recommend followup imaging based on criteria outlined below. Fleischner Society criteria for SOLID lung nodule followup. Nodule >8mm (single)CT, PET-CT, or biopsy at 3 months. Dictated by: Anai Adair MD, PhD on 05/12/2016 at 14:45 . ECG 12 Lead EKG at the [facility] showed normal sinus rhythm at rate of 99. No ST changes. QTc 464. Unchanged compared to previous EKG on 03/16/16. Cardiac Echo Impression Echocardiogram Report Name: FRANK ORDONEZ Study Date : 05/11/2016 Interpretation Summary 1. Mildly dilated left ventricle with mild to moderately increased wall thickness and globally reduced systolic function with an estimated EF of 20% 2. At least moderately dilated right ventricle with moderately decreased systolic function. 3. Severe tricuspid regurgitation into a dilated right atrium. The estimated right atrial pressure is elevated. The estimated RVSP is 52 mm Hg 4. Moderate mitral regurgitation into a dilated left atrium . Brief History History of Present Illness (per admission note): Mr. Frank Ordonez is a 55 yo male with history of mental illness, polysubstance abuse, hepatic encephalopathy, hepatitis C, CHF of unknown type, HTN, and chronic renal insufficiency who was admitted directly from [facility] ED for increasing SOB. Patient reports worsening SOB, productive cough , and leg swelling 3 days ago. He reports brown sputum occasionally. He complains about mouth and gum pain and cannot talk clearly. However, he denies any CP, nausea, vomiting, headache, or abdominal pain currently. He states to be hungry and thirsty, requesting to eat. History is extremely limited due to his somnolent state and incoherent speech. According to the ED note from the transfer hospital, patient presented to the ED with complaint of worsening dyspnea with walking and exertion. Sitting upright seems to help. In the ED at [facility], patient was found to be hypertensive 176/143. Temp 97.7. HR 100, RR 20, and O2 97% at [facility]. Labs significant for positive Amphetamine/ Methamphetamin on the UDS, INR 1.5, DDimer > 20, BUN 77, Cr 2.9, Na 134, K 5.6, AST 612, ALT 953, Alk Phos 529. Trop 0.41, CK-MB 56.9, CPK 924. BNP >5000. UA negative. CXR showed CHF and pulmonary edema with no infiltrate. EKG revealed normal sinus rhythm at rate of 99. It was thought the patient would get higher level of care, possible cardiology and nephrology, and he was transferred to [facility]. Of note, patient was admitted to the hospital for similar symptoms in 02/29/2016. Hospital Course #. Chronic psychotic disorder. He was alert and oriented but poorly communicative and resisted many recommended medical interventions. He seemed angry with recommendations by health professionals. Elected to leave AMA. He was counseled by me that he currently has a probable cancer obstructing one of his kidneys, as well as severe heart and renal disease. He declined further workup or treatment of these conditions. While his judgment was poor, I believe he is decisional. - Discharged AMA #. Acute on chronic CHF exacerbation, present on admission, active. Acute systolic congestive heart failure. Likely sympathomimetic abuse, alcohol or possibly ischemic disease. No significant diuresis of her first 24 hours of hospitalization. - Treated with aggressive diuretic regimen - Cardiology consult #. Elevated D-dimer, present on admission, active. D-Dimer >20 at [facility]. Patient had h/o PE in the past. Nuclear medicine study ordered but patient was unable to comply. Lower extremity Doppler is negative. Patient has cirrhosis coagulopathy and possible neoplasm, extremity and false positive d-dimer. No strong evidence of DVT. - Discontinue heparin. #. Acute encephalopathy, present on admission, active. Likely toxic encephalopathy related to substance use. - Will start thiamine and multivitamins. #. Acute on chronic kidney disease, present on admission, active. Unilateral hydronephrosis. Likely obstructive uropathy, possibly due to neoplasm, with superimposed medical renal disease. He refused additional recommended blood test to evaluate his kidney disease. - BUN 77 and Cr 2.9 on admission (baseline Cr 1.96). - Nephrology and Urology consult #. Hypertensive emergency, present on admission, active. - BP 180/128 on admission with possible acute encephalopathy and kidney injury. #. Elevated Troponin and CK-MB, present on admission, active. - In the setting of DEVANTE. However, Trop is elevated compared to baseline (0.41 today,was 0.018 two months ago) likely related to renal failure - EKG on admission was negative for acute changes. #. Electrolyte abnormalities, present on admission, acute. - Hypervolemic hyponatremia: in the setting of CHF exacerbation. - Hyperkalemia: no EKG changes. #. Elevated liver enzymes, acute on chronic, present on admission, active. Likely fatty liver, simply alcoholic versus infectious hepatitis. Abdominal CT suggests cirrhosis. #. Dental/mouth pain, chronic, active. No signs of severe gingivitis. Patient insisted that he had a staph infection in his mouth but physical exam did not confirm this. #. Methamphetamine abuse, chronic, active. patient advised to quit. #. Social issues including homelessness - consulted pediatric social worker. Code status: FULL per the patient. Exam Vital Signs (Last) Date Time Temp Pulse Resp B/P Pulse Ox O2 Delivery O2 Flow Rate FiO2 05/13/16 08:29 37.0 85 20 141/86 96 Room Air 05/12/16 13:16 0.50 Exam Disheveled appearing, alert with angry demeanor Refused physical exam Test 05/11/16 00:20 05/11/16 06:10 05/11/16 08:02 05/11/16 20:50 Magnesium Level 2.2mg/dL (1.6-2.6) Ammonia 28ug/dL (18-53) Hold Santiago Top Tube Received (Received) Hold Urine Received (Received) Prothrombin Time 16.2sec (8.1-12.5) Prothromb Time International Ratio 1.50ratio Vitamin B12 Level >1999pg/mL (211-946) Folate > 19.9ng/mL (>3.0) Procalcitonin 1.19ng/mL (0.00-0.08) Hepatitis A IgM Antibody Negative (Negative) Hepatitis B Surface Antigen Negative (Negative) Hepatitis B Core IgM Antibody Negative (Negative) Hepatitis C Antibody >11.0s/co ratio Hepatitis C Antibody Comment Comment (.) Hepatitis C Comment . Troponin T 0.103ug/L (0.0-0.011) Test 05/12/16 02:15 05/12/16 08:10 05/12/16 09:05 05/13/16 08:57 White Blood Count 9.0th/mm3 (3.8-10.1) Red Blood Count 4.25mil/mm3 (4.40-5.80) Hemoglobin 10.5g/dL (13.8-17.2) Hematocrit 32.1% (41.0-50.0) Mean Corpuscular Volume 75.5fL (81-100) Mean Corpuscular Hemoglobin 24.7pg (27.0-35.0) Mean Corpuscular Hemoglobin Concent 32.7% (32.0-37.0) Red Cell Distribution Width 19.4% (12.3-15.4) Platelet Count 318bil/L (150-400) Neutrophils (%) (Auto) 77.7% (40-74) Lymphocytes (%) (Auto) 10.8% (14-46) Monocytes (%) (Auto) 9.8% (4-12) Eosinophils (%) (Auto) 1.2% (0-5) Basophils (%) (Auto) 0.1% (0-3) Total Bilirubin 1.7mg/dL (0.0-1.2) Aspartate Amino Transf (AST/SGOT) 451U/L (0-50) Alanine Aminotransferase (ALT/SGPT) 769U/L (0-44) Alkaline Phosphatase 476U/L (25-150) Total Protein 6.6g/dL (6.4-8.4) Albumin 3.0g/dL (3.4-5.0) Activated Partial Thromboplast Time 71.7sec (22.8-33.0) Lactic Acid Level 0.9mmol/L (0.4-2.0) Sodium Level 129mEq/L (134-144) Potassium Level 3.4mEq/L (3.5-5.2) Chloride Level 88mEq/L (97-108) Carbon Dioxide Level 26mmol/L (18-29) Blood Urea Nitrogen 75mg/dL (6-24) Creatinine 2.83mg/dL (0.76-1.27) Estimat Glomerular Filtration Rate 25mL/min (>59) Glucose Level 105mg/dL (60-99) Calcium Level 8.7mg/dL (8.5-10.1) Discharge Medications No Active Prescriptions or Reported Meds Followup Plan Disposition: Left AMA Time spent 35 minutes in patient assessment in care coordination including counseling patient regarding the risks of leaving hospital Caleb Lopez MD May 13, 2016 16:38
== END 2016-05-13 12:35 | disposition left against medical advice (07) | DRG 291 ==
LOC: PCC 23:31
PROVIDERS: ADMIT Hospitalist; ATTEND Hospitalist
PROC: 4A033R1 Measurement of Arterial Saturation, Peripheral, Percutaneous Approach (ICD-10-PCS; principal; 2016-05-11)
DX: I13.0 Hypertensive heart and chronic kidney disease with heart failure and stage 1 through stage 4 chronic kidney disease, or unspecified chronic kidney disease (principal); I50.23 Acute on chronic systolic (congestive) heart failure; G92 Toxic encephalopathy; N17.9 Acute kidney failure, unspecified; I16.1 Hypertensive emergency; E87.1 Hypo-osmolality and hyponatremia; F23 Brief psychotic disorder; N13.0 Hydronephrosis with ureteropelvic junction obstruction; F15.10 Other stimulant abuse, uncomplicated; R47.1 Dysarthria and anarthria; F17.210 Nicotine dependence, cigarettes, uncomplicated; K08.89 Other specified disorders of teeth and supporting structures; N18.9 Chronic kidney disease, unspecified